=== PATIENT | male | born 1990 | race Caucasian/White ===

== ENCOUNTER 2018-10-02 21:57 | Emergency (ER) | payer OTHER ==
[2018-10-02] MEDS ORDERED: IPRATROPIUM/ALBUTEROL 3 ML DEYVIAL ONE (22:16)
[2018-10-02] MEDS ORDERED: IPRATROPIUM/ALBUTEROL 3 ML DEYVIAL IH ONE (22:19)
--- NOTE | 2018-10-02 22:20 | EDPHY ---
H & P Stated Complaint: States "my throat feels like it's closing". No Hx of allergies. Time Seen by Provider: 10/02/18 22:13 - Personal History Current Tetanus Diphtheria and Acellular Pertussis (TDAP): Yes - Medical/Surgical History Hx Asthma: Yes Hx Chronic Respiratory Disease: No Hx Diabetes: No Hx Cardiac Disease: No Hx Renal Disease: No Hx Cirrhosis: No Hx Alcoholism: No Hx HIV/AIDS: No Hx Splenectomy or Spleen Trauma: No Other PMH: bipolar, depression, asthma - Social History Smoking Status: Never smoked Constitutional: Initial Vital Signs Temperature (C) 36.7 C 10/02/18 22:01 Heart Rate 103 H 10/02/18 22:01 Respiratory Rate 16 10/02/18 22:01 Blood Pressure 154/111 H 10/02/18 22:01 O2 Sat (%) 96 10/02/18 22:01 Allergies/Adverse Reactions: No Known Allergies Allergy (Unverified 10/02/18 22:00) Home Medications: Medication Instructions Recorded Abilify 10/02/18 Apple Cider Vinegar 10/02/18 Lamictal 10/02/18 Wellbutrin Xl 10/02/18 Medical Decision Making ED Course/Re-evaluation: CHIEF COMPLAINT: Feels like throat is tight HISTORY OF PRESENT ILLNESS: 28-year-old gentleman who is healthy. He works at a [employer] and had a ventilator maki in place. He opened the top of a powder which is an ingredient for 1 of the medicines and although the powder did seem to explode or go anywhere he felt that he was having a little tightness in his throat. Once again he did have his respiratory maki on. He denies any real symptoms now but is office 1 mg get checked out. He has never had symptoms like this before. REVIEW OF SYSTEMS: A comprehensive 10 system review of systems is otherwise negative aside from elements mentioned in the history of present illness and medical decision making. PHYSICAL EXAM: HR, BP, O2 Sat, RR. Temp noted General Appearance: Alert, well hydrated, appropriate, and non-toxic appearing. Head: Atraumatic without scalp tenderness or obvious injury Eyes: Pupils equal, round, reactive to light and accommodation, EOMI, no trauma , no injection. Ears: Clear bilaterally, no perforation, normal landmarks Nose: Atraumatic, no rhinorrhea, clear. Throat: There is no erythema or exudates, no lesions, normal tonsils, mucus membranes moist. Neck: Supple, 2+ carotid upstroke, nontender, no lymphadenopathy. Respiratory: No retractions, no distress, no wheezes, and no accessory muscle use. Lungs are clear to auscultation bilaterally. Cardiovascular: Regular rate and rhythm, no murmurs, rubs, or gallops. Bilateral carotid, radial, dorsalis pedis, and posterior tibial pulses intact. Good capillary refill all extremities. Gastrointestinal: Abdomen is soft, nontender, non-distended, no masses, no rebound, no guarding, no peritoneal signs. Musculoskeletal: Normal active ROM of all extremities, atraumatic. Neurological: Alert, appropriate, and interactive. The patient has normal DTRs and non-focal cranial nerves, motor, sensory, and cerebellar exam. Skin: No rashes, good turgor, no nodules on palpation. Past medical history: Depression Past surgical history: Noncontributory Family history: Noncontributory Social history: Single, employed, does not abuse tobacco drugs or alcohol, recently moved here from [place] DIFFERENTIAL DIAGNOSIS: The differential diagnosis for the patient's tight throat included but was not limited to pneumonia, allergic reaction, chemical exposure, and pulmonary embolus. MEDICAL DECISION MAKING: This patient potentially had an exposure to an unknown ingredient in medical supply. He had his respiratory maki on. He denies any skin symptoms or any oropharyngeal symptoms. Feels like his throat is a little bit tight. Denies any breathing difficulty at this time. I have given a duo nebulizer treatment he feels much better in like to return back to work. Departure - Departure Disposition: Home, Routine, Self-Care Clinical Impression: Exposure to chemical inhalation Condition: Good Instructions: Body Substance Exposure (ED) Referrals: NONE *PRIMARY CARE P,. [Primary Care Provider] - As per Instructions
[2018-10-02 22:37] VITALS: BP 157/91
== END 2018-10-02 22:36 | disposition home or self-care (01) ==
DX: Z77.098 Contact with and (suspected) exposure to other hazardous, chiefly nonmedicinal, chemicals (principal); Y99.0 Civilian activity done for income or pay